=== PATIENT | male | born 1950 | race American Indian/Alaskan Native ===

== ENCOUNTER 2021-05-31 06:59 | Day surgery (SDC) | payer MEDICARE, OTHER ==
[2021-05-31] MEDS ORDERED: SODIUM CHLORIDE 0.9% 500 ML 500 ML IV SCH (08:00)
[2021-05-31 08:22] LABS: Basophils % (Auto) 0.4 % (0.0-1.8); Eosinophils # (Auto) 0.1 K/mm3 (0.0-0.4); Eosinophils % (Auto) 1.7 % (0.0-4.3); Hematocrit 40.7 % (35.5-45.6); Hemoglobin 13.2 gm/dl (11.8-15.2); Lymphocytes # (Auto) 1.3 K/mm3 (1.2-5.4); Lymphocytes % (Auto) 28.5 % (13.4-35.0); Mean Corpuscular HGB Conc 33 % (32-34); Mean Corpuscular Volume 89 fl (84-94); Monocytes # (Auto) 0.4 K/mm3 (0.0-0.8); Monocytes % (Auto) 9.3 % (0.0-7.3); Platelet Count 154 K/mm3 (140-440); Red Blood Count 4.58 M/mm3 (3.65-5.03); Red Cell Distribution Width 13.9 % (13.2-15.2)
[2021-05-31 08:32] LABS: INR 1.06 (0.87-1.13)
[2021-05-31 08:33] LABS: Partial Thromboplastin Time 30.9 Sec. (24.2-36.6)
[2021-05-31 08:34] LABS: BUN/Creatinine Ratio 15; Blood Urea Nitrogen 17 mg/dL (9-20); Hemolysis Index 9
[2021-05-31] MEDS ORDERED: CLOPIDOGREL 75 MG TAB PO ONE (09:00)
[2021-05-31] MEDS ORDERED: HEPARIN/NS 5000 UNIT/500ML 1,000 ML IR ONE (10:10)
[2021-05-31] MEDS ORDERED: LIDOCAINE (2%) 20 MG/1 ML VIAL 20 ML MDV INFILTRATI ONE ×2 (10:10→10:36)
[2021-05-31] MEDS ORDERED: HEPARIN 10,000 UNITS/10 ML VIAL ONE (10:10)
[2021-05-31] MEDS ORDERED: fentaNYL 100 MCG/2 ML INJ ONE (10:10)
[2021-05-31] MEDS ORDERED: MIDAZOLAM 2 MG/2 ML INJ ONE (10:10)
[2021-05-31] MEDS ORDERED: NITROGLYCERIN SYRINGE 0 ML ONE (10:10)
[2021-05-31] MEDS ORDERED: fentaNYL 100 MCG/2 ML INJ IV ONE (10:35)
[2021-05-31] MEDS ORDERED: MIDAZOLAM 2 MG/2 ML INJ IV ONE (10:35)
[2021-05-31] MEDS ORDERED: traMADol 50 MG TAB PO PRN (11:54)
--- NOTE | 2021-05-31 11:59 | Discharge Summary ---
Short Stay Discharge Plan Activity: advance as tolerated Weight Bearing Status: Partial Weight Bearing Diet: low fat, low cholesterol, low salt, diabetic Wound: keep clean and dry Special Instructions: no heavy lifting (3 days), other (Do not use the Vardenafil within 48 hours of nitroglycerin) Follow up with: ADEN LANGLEY MD [Primary Care Provider] - 7 Days LEONARD LIVE MD [Staff Physician] - 7 Days
[2021-05-31] MEDS ORDERED: SODIUM CHLORIDE 0.9% 1000 ML 1,000 ML IV SCH (13:00)
[2021-05-31 15:23] VITALS: BP 147/97
--- NOTE | 2021-05-31 18:41 | Electrocardiograph Report ---
[facility] Test Date: 2021-05-31 Test Time: 07:56:24 Pat Name: ISIDRO HUBBARD Department: Room: Gender: M Recreation Attendant: CALVIN : 1950 Requested By: MIKAL RUIZ Order Number: [id number] Reading MD: Mikal Ruiz Measurements Intervals [place] Rate: 58 P: 59 NV: 259 QRS: 61 QRSD: 93 T: 201 QT: 479 QTc: 472 Interpretive Statements Sinus rhythm Prolonged NV interval Low voltage, extremity leads Nonspecific T abnormalities, lateral leads No previous ECG available for comparison Electronically Signed On 05-31-2021 18:40:44 EST by Mikal Ruiz
--- NOTE | 2021-05-31 18:53 | Cardiac Catherization Report ---
DATE OF SERVICE: 05/31/2021 REASON FOR PROCEDURE: The patient is a 71-year-old man with a history of 4-vessel coronary artery bypass done in 2001. This has been followed by multiple diagnostic and interventional procedures, most recently a year ago at [facility]. At that time, he was noted with 2/4 grafts occluded, and underwent successful placement of a left main coronary stent, intended to perfuse the circumflex system. The patient is referred for cardiac catheterization for further assessment of recurrent chest pain. PROCEDURES: 1. Left heart catheterization. 2. Selective left and right coronary angiography. 3. Left ventricular angiography. 4. Sedation time start 10:35, and 11:02. DESCRIPTION OF PROCEDURE: The patient was prepped and draped in a sterile fashion after informed consent. The right femoral artery was entered using Seldinger technique followed by placement of a 6-[place] sheath. Selective left and right coronary angiography was performed using #4 left and right Yuli catheters. The right Yuli was used for saphenous vein graft angiography. We then exchanged for a left internal mammary artery graft for left internal mammary artery angiography. We then exchanged for a pigtail catheter, which was used for left ventricular angiography. The catheters were then removed, sheath removed and hemostasis achieved using manual compression. The patient was returned to the postprocedure unit in stable condition. There were no complications. FINDINGS: HEMODYNAMICS: Left ventricular end-diastolic pressure was 24, following coronary angiography. Ascending aortic pressure was 156/100. There was no significant pressure gradient on pullback across the aortic valve. CORONARY ANGIOGRAPHY: The left main coronary artery was patent, notable for a stent extending from its mid segment into the proximal circumflex. The stented segment was widely patent with no significant restenosis. There was good perfusion of a fairly large, dominant circumflex system. The distal segments of the circumflex system contained diffuse mild atherosclerosis, but no focal obstructive lesions. The LAD was completely occluded in its proximal segment. There was minimal forward flow into small, diffusely-diseased proximal diagonal branches, and septal perforators. The left internal mammary artery graft to the LAD was patent with good anastomosis to the mid LAD and good distal runoff. A saphenous vein graft was anastomosed to a large ramus intermedius artery. This vein graft was patent with good anastomosis and good distal runoff. There was a 30% stenosis of the ramus artery beyond the graft insertion, otherwise, no significant lesions were noted within this vessel beyond the anastomosis. The right coronary artery was nondominant, and contained diffuse [id number] atherosclerosis in its proximal and mid segments. Two saphenous vein grafts were occluded as reported on previous cardiac catheterizations. The left ventricle was at least moderately dilated. There was severe left ventricular systolic dysfunction, diffuse hypokinesis with left ventricular ejection fraction 30%. CONCLUSION: 1. Severe 2-vessel coronary artery disease. Nondominant right coronary artery. 2. Ischemic cardiomyopathy, with left ventricular ejection fraction of 30%. 3. Patent left internal mammary artery graft to the LAD. 4. Patent saphenous vein graft to the ramus intermedius artery. 5. Saphenous vein grafts x 2 occluded, as reported on previous studies. 6. Patent coronary stent extending from the mid left main, intended to perfuse the circumflex system. RECOMMENDATIONS: 1. No further coronary intervention is indicated at this time. The patient should be maintained on aggressive risk factor modification, and optimal medical therapy for angina from small vessel disease. 2. In addition, if cardiomyopathy, persistent medical therapy, the patient is recommended for further device therapies as determined by his primary head of operation and logistics. TID: [id number] RECEIPT: [id number] CA/TAB
== END 2021-05-31 07:00 | disposition home or self-care (01) ==
LOC: CATHLABREC 06:59
PROVIDERS: ATTEND Internal Medicine Cardiovascular Disease
DX: R07.9 Chest pain, unspecified (principal); I25.10 Atherosclerotic heart disease of native coronary artery without angina pectoris; I10 Essential (primary) hypertension; E78.00 Pure hypercholesterolemia, unspecified; M19.90 Unspecified osteoarthritis, unspecified site; Z79.899 Other long term (current) drug therapy; Z98.890 Other specified postprocedural states; Z88.2 Allergy status to sulfonamides; Z88.8 Allergy status to other drugs, medicaments and biological substances
CPT/HCPCS: 36415; 80048; 85025; 85610; 85730; 93005; 93459; 99156; 99157; C1769; C1894; J1644; J2250; J3010; J3490; J7040; 93567; J1815; Q9967